=== PATIENT | female | born 1950 | race Caucasian/White ===

== ENCOUNTER 2022-05-04 18:48 | Inpatient (IN) | payer MEDICARE ==
[~2022-05-04] VITALS: Ht 167.6 cm; Wt 60.6 kg
[2022-05-04 19:15] LABS: BASO # 0.1 K/mm3 (0.0-0.2); BASO % 0.5 % (0.0-2.0); EOS # 0.1 K/mm3 (0.0-0.7); EOS % 1.1 % (0.0-4.0); GRAN # 6.6 K/mm3 (1.4-6.5); GRAN % 71.5 % (42.2-75.2); HEMATOCRIT 47.6 % (37.0-47.0); HEMOGLOBIN 15.6 g/dl (12.5-16.0); LYMPH # 1.8 K/mm3 (1.2-3.4); LYMPH % 19.6 % (20.0-51.0); MEAN CELL VOLUME 85 fl (80.0-100.0); MEAN CORPUSCULAR HEMOGLOBIN 28 pg (27-31); MEAN CORPUSCULAR HGB CONC 33 g/dl (33.0-37.0); MEAN PLATELET VOLUME 9.3 fl (7.4-10.4); MONO # 0.7 K/mm3 (0.1-0.6); PLATELET COUNT 475 K/mm3 (130-400); REDCELL DISTRIBUTION WIDTH-CV 13.2 % (11.5-14.5)
[2022-05-04 19:36] LABS: COLLECTION METHOD CATHETER
[2022-05-04 19:36] LABS: ALANINE AMINOTRANSFERASE 11 U/L (0-55); ALBUMIN 4.2 gm/dL (3.4-4.8); ALKALINE PHOSPHATASE 76 U/L (40-150); ANION GAP 12 mmol/L (7-16); AST,SGOT 16 U/L (5-34); BILIRUBIN,TOTAL 0.5 mg/dL (0.2-1.2); BLOOD UREA NITROGEN 19 mg/dL (10-20); CALCIUM 9.6 mg/dL (8.4-10.2); CARBON DIOXIDE 26 mmol/L (23-31); CHLORIDE 101 mmol/L (98-107); CREATININE, serum 0.87 mg/dL (0.57-1.11); GLUCOSE 88 mg/dL (70-99); LIPASE 19 U/L (8-78); POTASSIUM 4.3 mmol/L (3.5-4.5); SODIUM 139 mmol/L (136-145)
[2022-05-04 19:42] LABS: ALCOHOL(ethanol),MEDICAL < 10 mg/dL (0-10)
[2022-05-04 19:44] LABS: URINE APPEARANCE Clear (CLEAR/HAZY); URINE COLOR Yellow (YELLOW); URINE GLUCOSE Negative (NEGATIVE); URINE KETONE 1+ (NEGATIVE); URINE PROTEIN(semi-quant) Negative (NEGATIVE)
[2022-05-04 19:45] LABS: URINE BLOOD Negative (NEGATIVE); URINE NITRATE Negative (NEGATIVE); URINE UROBILINOGEN 0.2 E.U/dL (0.2-1.0)
[2022-05-04 19:48] LABS: MUCOUS Present (NOT PRESENT); SQUAMOUS EPITHELIAL None Seen /hpf (0-10); URINE BACTERIA None Seen /hpf (NONE SEEN); URINE RBC 0-2 /hpf (0-2)
[2022-05-04 19:56] LABS: TSH w REFLEX 1.225 uIU/mL (0.350-4.940)
[2022-05-04 19:58] LABS: TROPONIN-I < 0.010 ng/mL (0.00-0.033)
[2022-05-04 20:06] LABS: TRICYCLIC ANTIDEPRESS URINE NEGATIVE
--- NOTE | 2022-05-05 00:27 | NUR ---
PT ARRIVED TO THE MEDICAL/COVID UNIT. ABLE TO ANSWER SOME QUESTIONS, HAS DIFFICULT TIME WORD FINDING. THE PATIENT STATES THAT IT FEELS WEIRD THAT THE WORDS ARE AT THE TIP OF HER TONGUE BUT SHE CAN'T GET THEM OUT. SHE IS CURRENTLY ASYMPTOMATIC FAR COVID GOES. DENIES ANY PAIN. THE PATIENT IS N BED AND THE BED ALARM IS SET DUE TO APHASIA AND DELAYED RESPONSES. NO OTHER CONCERNS AT THIS TIME.
[2022-05-05 05:20] VITALS: BP 142/72; PULSE 66; TEMP 98.8
[2022-05-05 06:47] LABS: C-REACTIVE PROTEIN 0.59 mg/dL (0.00-0.50); MAGNESIUM 1.9 mg/dL (1.6-2.6)
--- NOTE | 2022-05-05 07:06 | NUR ---
PT HAD UNEVENTFUL SHIFT. DENIES PAIN, HAS TROUBLE FINDING WORDS STILL.
[2022-05-05 07:41] VITALS: BP 123/71; PULSE 63; TEMP 97.7
--- NOTE | 2022-05-05 10:41 | NUR ---
REPORT CALLED TO ОЛЕГ AT [facility]. ALL QUESTIOSN ANSWERED, CALL BACK NUMBER GIVEN JUST IN CASE. INFORMED HER OF CURRENT PLANNED AD WRITER TIME. I ALSO PASSED ON PATIENTS SON TIM'S NUMBER.
--- NOTE | 2022-05-05 11:45 | NUR ---
PATIENT LEFT WITH EMS TRANSPORTATION, SON WAS AT BEDSIDE (DPO FORM GIVEN TO SON TIM.) PATIENT LAC IV INTACT AND INFUSING NS AT 100CC/HR ORDERED. TELE WAS REMOVED. PATIENT LEFT IN STABLE CONDITION.
== END 2022-05-05 11:45 | disposition short-term general hospital (02) | DRG 70 ==
LOC: COL.ER 18:48 → MEDICAL 23:24 → EDBEDREQ 23:39 → MEDICAL 05-05 11:45
PROVIDERS: Emergency Medicine; Nurse Practitioner Family; Physician Assistant; ADMIT Hospitalist
DX: G93.89 Other specified disorders of brain (principal); U07.1 COVID-19; R47.01 Aphasia; I10 Essential (primary) hypertension; E86.0 Dehydration; Z88.8 Allergy status to other drugs, medicaments and biological substances; Z53.29 Procedure and treatment not carried out because of patient's decision for other reasons
CPT/HCPCS: OP; G0378; J1100; J7030; Q9967